=== PATIENT | female | born 1990 | race Caucasian/White ===

== ENCOUNTER 2023-08-17 10:12 | Emergency (ER) | payer MEDICAID ==
[~2023-08-17] VITALS: Ht 160 cm; Wt 91.0 kg
[2023-08-17 10:27] VITALS: O2SAT 98
[2023-08-17] MEDS ORDERED: IBUPROFEN 800MG TABLET PO ONE (11:45)
[2023-08-17] MEDS ORDERED: IBUPROFEN 400MG TABLET PO SCH (12:30)
[2023-08-17 13:26] LABS: UCG QC LOT# 743958; UCG SCREEN NEGATIVE
[2023-08-17] MEDS ORDERED: IBUP-2030 MT (13:36)
[2023-08-17] MEDS ORDERED: CYCL10TA21 MT (13:36)
[2023-08-17 14:22] VITALS: BP 128/73; PULSE 60; RESP 18; TEMP 98.6
[2023-08-17 14:28] LABS: CLARITY URINE CLOUDY (CLEAR); COLOR URINE YELLOW (YELLOW); GLUCOSE URINE NEGATIVE (NEGATIVE); KETONES URINE NEGATIVE (NEGATIVE); LEUKOCYTE ESTERASE URINE 1+ (NEGATIVE); NITRITE URINE NEGATIVE (NEGATIVE); OCCULT BLOOD URINE TRACE (NEGATIVE); PROTEIN URINE NEGATIVE (NEGATIVE); SPECIFIC GRAVITY URINE 1.023 (1.005-1.030); UROBILINOGEN URINE 0.2 E.U./dL (0.2-1.0)
[2023-08-17 14:55] LABS: BACTERIA URINE 1+; SQUAMOUS EPITHELIAL CELL URINE 1+ /lpf (RARE/1+); YEAST URINE NONE SEEN
[2023-08-17] MEDS ORDERED: CEPH500T MT (17:09)
== END 2023-08-17 14:24 | disposition home or self-care (01) ==
LOC: ER 10:12
DX: N39.0 Urinary tract infection, site not specified (principal)
CPT/HCPCS: 72040; 81003; 81025; 99284